=== PATIENT | female | born 1995 | race Caucasian/White ===

== ENCOUNTER 2018-11-14 12:30 | Emergency (ER) | payer BC ==
[2018-11-14 12:52] VITALS: BP 137/92
--- NOTE | 2018-11-14 13:02 | UC ---
General HPI - HPI Summary HPI Summary: Here for two days of red eye on left = woke this morning and had dried drainage over left eye. Last week had some redness over the edge of her left eye. States it doesn't itch but it feels weird. No pain. No vision changes. No URI symptoms. No fever. States she may have allergies but no significant rhinorrhea, cough or congestion. Meds: reviewed - History of Current Complaint Chief Complaint: UCEye Stated Complaint: EYE ISSUE Time Seen by Provider: 11/14/18 12:37 Hx Last Menstrual Period: 1 week ago Pain Intensity: 1 - Allergy/Home Medications Allergies/Adverse Reactions: Allergies Allergy/AdvReac Type Severity Reaction Status Date / Time No Known Allergies Allergy Verified 11/14/18 12:51 Home Medications: Home Medications Isotretinoin [Claravis] 80 mg PO DAILY 11/14/18 [History Confirmed 11/14/18] Norethindrone-E.estradiol-Iron [Subha 24 Fe 1-20 mg-Mcg(24)] 1 tab PO DAILY [History Confirmed 11/14/18] PMH/Surg Hx/FS Hx/Imm Hx Previously Healthy: Yes - Surgical History Surgical History: Yes Surgery Procedure, Year, and Place: wisdom teeth - Social History Alcohol Use: Rare Substance Use Type: None Smoking Status (MU): Never Smoked Tobacco Review of Systems All Other Systems Reviewed And Are Negative: Yes Eyes: Positive: Drainage, Eye Redness Physical Exam Triage Information Reviewed: Yes Appearance: Well-Appearing Vital Signs: Initial Vital Signs Temp 99 F 11/14/18 12:48 Pulse 80 11/14/18 12:48 Resp 15 11/14/18 12:48 BP 137/92 11/14/18 12:48 Pulse Ox 100 11/14/18 12:48 Vital Signs Reviewed: Yes Eyes: Positive: Other: - mild conjunctival injection worse on left ENT: Positive: Normal ENT inspection Neck: Positive: Supple Respiratory: Positive: Chest non-tender, Normal breath sounds Cardiovascular: Positive: RRR, No Murmur Course/Dx - Course Course Of Treatment: This is a 23 yr old with two days of red eye with drainage MIld conjunctivitis less likely to be bacterial. Could be allergic conjunctivitis as well. Plan If symptoms get worse - more redness and drainage - start antibiotic eye drop as prescribed If symptoms do not improve despite antibiotic eye drop, consider allergy drops over the counter and/or antihistamine Continue good hand washing to limit spread if it is conjunctivitis - Diagnoses Provider Diagnosis: Conjunctivitis Discharge - Sign-Out/Discharge Documenting (check all that apply): Patient Departure All imaging exams completed and their final reports reviewed: No Studies - Discharge Plan Condition: Good Disposition: HOME Prescriptions: Polymyx/Trimethoprim OPTH* [Polytrim OPHTH*] 3 drop LEFT EYE Q8HR #1 btl Patient Education Materials: Conjunctivitis (ED) Referrals: Ankit Soto MD [Primary Care Provider] - Additional Instructions: If symptoms get worse - more redness and drainage - start antibiotic eye drop as prescribed If symptoms do not improve despite antibiotic eye drop, consider allergy drops over the counter and/or antihistamine Continue good hand washing to limit spread if it is conjunctivitis - Billing Disposition and Condition Condition: GOOD Disposition: Home
== END 2018-11-14 13:06 | disposition home or self-care (01) ==
LOC: UCEAST 12:30
DX: H10.9 Unspecified conjunctivitis (principal)
CPT/HCPCS: 99212; G0463